=== PATIENT | female | born 1960 | race Caucasian/White ===

== ENCOUNTER → 2024-05-05 10:20 | Outpatient (REF) | payer OTHER, SELFPAY | LOC: HWRAD 10:20 | PROVIDERS: ATTENDING PHYSICIAN Physician Assistant | DX: N94.9 Unspecified condition associated with female genital organs and menstrual cycle (principal); Z80.49 Family history of malignant neoplasm of other genital organs; Z85.41 Personal history of malignant neoplasm of cervix uteri | CPT/HCPCS: 76830; 76856 ==